=== PATIENT | female | born 1950 | race African-American/Black ===

== ENCOUNTER 2017-09-24 09:44 | Emergency (ER) | payer OTHER, MEDICAID ==
[~2017-09-24] VITALS: Ht 170.2 cm; Wt 127.0 kg
[2017-09-24 09:46] VITALS: BP 166/91
== END 2017-09-24 11:24 | disposition home or self-care (01) ==
LOC: ER 10:06
DX: M25.562 Pain in left knee (principal); I10 Essential (primary) hypertension; E78.00 Pure hypercholesterolemia, unspecified; Z90.49 Acquired absence of other specified parts of digestive tract; Z96.659 Presence of unspecified artificial knee joint
CPT/HCPCS: 73562; 99284

== ENCOUNTER 2021-06-18 11:36 | Emergency (ER) | payer MEDICARE, MEDICAID ==
[~2021-06-18] VITALS: Ht 170.2 cm; Wt 122.0 kg
[2021-06-18 15:18] LABS: CLARITY URINE TURBID (CLEAR); COLOR URINE DARK YELLOW (YELLOW); KETONES URINE 2+ (NEGATIVE); LEUKOCYTE ESTERASE URINE 2+ (NEGATIVE); NITRITE URINE NEGATIVE (NEGATIVE); OCCULT BLOOD URINE 3+ (NEGATIVE); PROTEIN URINE 2+ (NEGATIVE); SPECIFIC GRAVITY URINE 1.024 (1.005-1.030)
[2021-06-18 16:02] VITALS: BP 149/69
== END 2021-06-18 16:22 | disposition home or self-care (01) ==
LOC: ER 11:36
DX: R31.9 Hematuria, unspecified (principal); E78.00 Pure hypercholesterolemia, unspecified; I10 Essential (primary) hypertension; Z90.49 Acquired absence of other specified parts of digestive tract
CPT/HCPCS: 81003; 99282